=== PATIENT | female | born 1970 | race Two or more races ===

== ENCOUNTER 2017-04-11 06:38 | Day surgery (SDC) | payer OTHER ==
[2017-04-11] VITALS (10 sets, daily range): BP systolic 110–142; BP diastolic 67–83
[~2017-04-11] VITALS: Ht 152.4 cm; Wt 81.6 kg
[~2017-04-11 06:38] MED LIST: TRAMADOL HCL50 MG ORAL; ceFAZolin 1gm in D5W 55ml IVP ONE; celeBREX 200mg Cap **SURGERY PATIENTS ONLY ORAL ONE; oxyCONTIN 20mg tab ORAL ONE
--- NOTE | 2017-04-11 06:55 | Pre-Procedure Note/Attestation ---
Pre-Procedure Note/Attestation Complete Prior to Procedure Planned Procedure: right Procedure Narrative: Rt shoulder scope, sad, mini tay, debride vs repair of RTC, subpec biceps tenodesis vs tenotomy Indications for Procedure Pre-Operative Diagnosis: rt shoulder rtc tear, biceps tendonitis Attestation I attest that I discussed the nature of the procedure; its benefits; risks and complications; and alternatives (and the risks and benefits of such alternatives ), prior to the procedure, with the patient (or the patient's legal field representatives director). I attest that, if there was a reasonable possibility of needing a blood transfusion, the patient (or the patient's legal field representatives director) was given the [place] [facility] standardized written summary, pursuant to the [place] [address] Blood Safety Act ([place] Health and Safety Code # 1645, as amended). I attest that I re-evaluated the patient just prior to the surgery and that there has been no change in the patient's H&P, except as documented below:NONE ZOYA LAWSON Apr 11, 2017 06:55
[2017-04-11] MEDS ORDERED: Ropivacaine 5mg/ml Vial 30ml INJ ONE (07:22)
[2017-04-11] MEDS ORDERED: Lidocaine 1% 10mg/ml/Epi 0.005mg/ml 30ml vial INJ ONE (07:22)
[2017-04-11] MEDS ORDERED: Bupivacaine 0.5% Inj 30 ml vial INJ ONE (07:22)
[2017-04-11] MEDS ORDERED: NS Irrig 4000ml IRRIG ONE ×2 (08:00→09:01)
[2017-04-11] MEDS ORDERED: Atropine Sulfate 0.4mg/ml inj ONE (08:00)
[2017-04-11] MEDS ORDERED: Lidocaine 1% MPF 10mg/ml 5ml ONE (08:00)
[2017-04-11] MEDS ORDERED: Metoclopramide 10mg/2ml Inj ONE (08:00)
[2017-04-11] MEDS ORDERED: Propofol 200mg/20ml IV ONE (08:00)
[2017-04-11] MEDS ORDERED: Sodium Chloride 10ml vial INJ ONE (08:00)
[2017-04-11] MEDS ORDERED: Midazolam 2mg/2ml Inj ONE (08:00)
[2017-04-11] MEDS ORDERED: fentaNYL 100 mcg/2 mL IV ONE (08:00)
[2017-04-11] MEDS ORDERED: LR 1000ml ONE (08:00)
[2017-04-11] MEDS ORDERED: Dexamethasone 4mg/ml vial ONE (08:00)
[2017-04-11] MEDS ORDERED: Zemuron 50mg/5ml Inj IV ONE (08:00)
[2017-04-11] MEDS ORDERED: Esmolol 100mg/10ml Inj ONE (08:00)
[2017-04-11] MEDS ORDERED: Ketamine 500mg Inj ONE (08:00)
[2017-04-11] MEDS ORDERED: LR 1000ml 1,000 ML IVLG SCH (08:44)
--- NOTE | 2017-04-11 08:44 | Anethesia Preoperative Eval ---
Anesthesia Pre-op PMH/ROS General Date of Evaluation: Apr 11, 2017 Anesthesiologist: Momo ASA Score: ASA 2 Mallampati Score Class I : Soft palate, uvula, fauces, pillars visible Class II: Soft palate, uvula, fauces visible Class III: Soft palate, base of uvula visible Class IV: Only hard plate visible Mallampati Classification: Class III Surgeon: Callum Diagnosis: Right shoulder rotator cuff tear Surgical Procedure: Right shoulder arthroscopy, rotator cuff repair Anesthesia History: none Family History: no anesthesia problems Allergies: Coded Allergies: IBUPROFEN (Verified Allergy, Intermediate, bloating, 04/11/17) Medications: see eMAR Past Medical History Cardiovascular: Denies: HTN, CAD, [place], valve dz, arrhythmia, other Pulmonary: Denies: asthma, COPD, ASHISH, other Gastrointestinal/Genitourinary: Reports: GERD, Denies: CRI, ESRD, other Neurologic/Psychiatric: Denies: dementia, CVA, depression/anxiety, TIA, other Endocrine: Denies: DM, hypothyroidism, steroids, other HEENT: Denies: cataract (L), cataract (R), glaucoma, [place] (L), [place] (R), other Hematology/Immune: Denies: anemia, DVT, bleeding disorder, other Musculoskeletal/Integumentary: Reports: other - hrniated cervical disc, Denies: OA, RA, DJD, DDD, edema Other: obesity PSxH Narrative: Left shoulder arthroscopy Anesthesia Pre-op Phys. Exam Physician Exam Last Vital Signs Date Time Temp Pulse Resp B/P (MAP) Pulse Ox O2 Delivery O2 Flow Rate FiO2 04/11/17 07:18 98.3 77 17 124/73 99 Room Air Constitutional: NAD Cardiovascular: RRR Respiratory: CTA Airway Exam Mallampati Score: Class III MO: limited Neck: short, obese TMD: <3FB ROM: limited Teeth: intact Anesthesia Pre-op A/P Labs see chart Urine Test Test 04/11/17 07:00 Urine HCG, Qualitative Negative Studies Pre-op Studies: EKG - sr Risk Assessment & Plan Assessment: ASA II Plan: GA, right interscalene nerve block Status Change Before Surgery: No Pre-Antibiotics Drug: Ancef 2g Given Within 1 Hr of Incision: Yes Time Given: 08:30 FRANCISCA BARRIENTOS M.D. Apr 11, 2017 08:44
[2017-04-11] MEDS ORDERED: fentaNYL 100 mcg/2 mL IV PRN (08:45)
[2017-04-11] MEDS ORDERED: Metoclopramide 10mg/2ml Inj IVP PRN (08:45)
[2017-04-11] MEDS ORDERED: DiphenhydrAMINE 50mg/ml Inj IVP PRN (08:45)
[2017-04-11] MEDS ORDERED: Hydromorphone 0.5mg/0.5ml inj IVP PRN (08:45)
[2017-04-11] MEDS ORDERED: Midazolam 2mg/2ml Inj IVP PRN (08:45)
--- NOTE | 2017-04-11 09:03 | Immediate Post-Op Evaluation ---
Immediate Post-Op Evalulation Immediate Post-Op Evalulation Procedure: Right shoulder arthroscopy, rotator cuff repair Date of Evaluation: Apr 11, 2017 Time of Evaluation: 10:36 IV Fluids: 1.4L Blood Products: 0 Estimated Blood Loss: min Urinary Output: 0 Blood Pressure Systolic: 141 Blood Pressure Diastolic: 78 Pulse Rate: 88 Respiratory Rate: 16 O2 Sat by Pulse Oximetry: 95 Temperature (Fahrenheit): 97.2 Pain Score (1-10): 0 Nausea: No Vomiting: No Complications 0 Patient Status: awake, reacts, patent, none Hydration Status: adequate Drug: Ancef 2g Given Within 1 Hr of Incision: Yes Time Given: 08:30 FRANCISCA BARRIENTOS M.D. Apr 11, 2017 09:03
--- NOTE | 2017-04-11 09:04 | 48 Hour Post Anesthesia Eval ---
Post Anesthesia Evaluation Procedure: Right shoulder arthroscopy, rotator cuff repair Date of Evaluation: Apr 11, 2017 Airway: patent Nausea: No Vomiting: No Pain Intensity: 0 Hydration Status: adequate Cardiopulmonary Status: at baseline Mental Status/LOC: patient returned to baseline Post-Anesthesia Complications: 0 Follow-up care needed: ready to discharge FRANCISCA BARRIENTOS M.D. Apr 11, 2017 09:04
[2017-04-11] MEDS ORDERED: EPINEPHrine 1mg/1ml Amp ONE ×2 (09:31→09:49)
--- NOTE | 2017-04-11 10:21 | Brief Operative Note ---
Immediate Post Operative Note Operative Note Chief Complaint: rt shoulder pain Pre-op Diagnosis: rt shoulder biceps tendonitis Procedure: rt shoulder scope, sad, mini tay, biceps tenodesis Post-op Diagnosis: same as pre-op Findings: consistent w/pre-op dx studies Surgeon: md peter Bean Snapper: richard jacobs Anesthesiologist: md ramone Anesthesia: general, regional Specimen: none Complications: none Condition: stable Fluids: ns Estimated Blood Loss: minimal Drains: none Implant(s) used?: Yes ROMANA JACOBS Apr 11, 2017 10:21
[2017-04-11] MEDS ORDERED: Tylenol #3 tab (300mg/30mg) ORAL PRN (15:01)
[2017-04-11] MEDS ORDERED: Hydromorphone 0.5mg/0.5ml inj SUBQ PRN (15:01)
[2017-04-11] MEDS ORDERED: Norco 5mg/325mg tab ORAL PRN (15:01)
[2017-04-11] MEDS ORDERED: D5 1/2NS 1,000 ML IV SCH (15:01)
--- NOTE | 2017-04-11 17:45 | Operative Note - Dictated ---
DATE OF OPERATION: 04/11/2017 PREOPERATIVE DIAGNOSES: 1. Right shoulder impingement. 2. 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 3. Right shoulder biceps tendon tear. POSTOPERATIVE DIAGNOSES: 1. Right shoulder severe degeneration of the biceps tendon involving more than 50% of the biceps. 2. Right shoulder subacromial impingement. 3. Right shoulder acromioclavicular joint bone spur. PROCEDURES: 1. Right shoulder arthroscopy and extensive intra-articular shaving. 2. Right shoulder subacromial bursoscopy, bursectomy, and subacromial decompression. 3. Right shoulder mini-Marty procedure. 4. Right shoulder arthroscopic biceps tenotomy and tenodesis with an Arthrex 6.25 mm SwiveLock screw. SURGEON: Javon Nolen M.D. FOLLOW UP MANAGER: Lidia Reyna PA-C Hospitality Recruiter was present during the actual operative portion of the case and was important and essential part of the operation. During the operation, the assistant operations manager held and operated the arthroscopic camera for visualization, assisted by manipulating the arm to help with visualization, and helped with essential parts of the repair process as necessary such as operating surgical instruments under surgeon supervision, suture management, and wound closures. ANESTHESIOLOGIST: Lina Barr M.D. ANESTHESIA: LMA anesthesia combined with interscalene block. EBL: Less than 20 mL. COMPLICATIONS: None SURGICAL INDICATION: Patient is a 46-year-old female who sustained the above injury to her shoulder. The patient was treated non-operative initially, but this did not alleviate the patients symptoms. Therefore, after discussing all non-surgical and surgical options, and discussing all foreseeable risk and benefits of surgery, the patient opted for surgical treatment as described above. PATIENT POSITIONING: Patient was brought to the operating room table and was placed on the operating room table. All pressure points were well padded. General anesthesia was induced and patient was then placed in the lateral decubitus position. All pressure points were well padded again and an axillary roll was placed. Patient shoulder was then prepped and draped in the usual sterile fashion. Time out was performed and the appropriate preoperative antibiotic was given by the anesthesiologist. EXAMINATION OF SHOULDER UNDER ANESTHESIA: The shoulder was examined under anesthesia with all muscles well relaxed. The shoulder was forward flexed, abducted and was placed through full range of external and internal rotation. The anterior, posterior, and inferior stability of the shoulder was checked. The exam revealed. No evidence of adhesive capsulitis and no evidence of instability. PORTAL PLACEMENT: The posterior portal was established 2 cm inferior and 1 cm medial to the edge of the posterior acromion. 1 cm skin incision was made using an eleven blade and using the blunt obturator, the cannula was gently placed through the capsule. The midglenoid portal was established just lateral to the coracoid process under direct visualization. Direction of the cannula was first established using a spinal needle, and subsequently, the cannula was placed through the capsule with a blunt obturator. DIAGNOSTIC ARTHROSCOPY: The biceps tendon was probed and pulled through the joint for visualization. The biceps tendon had severe degeneration with severe fraying and involving more than 50% of the biceps tendon. The biceps anchor was palpated with a probe and was visualized. It appeared well attached and there was no evidence of SLAP tear. The posterior labrum and axillary recess was visualized. This was normal and there was no evidence of loose cartilage or fragments in this area. The glenoid articular surface was visualized and it appeared normal. The articular surface of the rotator cuff was visualized and probed next. There was no evidence of articular sided rotator cuff tear extending from the supraspinatus back to the posterior cuff. The Humeral head articular surface was then visualized. There was no evidence of articular cartilage damage. Next the anterior labrum, middle gleno-humeral ligament, subscapularis tendon, and the anterior inferior gleno-humeral ligament were evaluated. These structures were completely normal. At this point, the scope was moved to the midglenoid portal and the posterior structures including the posterior labrum, posterior capsule and posterior cuff were visualized. These structures were completely normal. The subscapularis recess was devoid of any loose bodies and the anterior capsule was well attached to the humeral neck. The middle and anterior inferior glenohumeral ligament was visualized. These structures were completely normal. OPERATIVE DEBRIDEMENTS AND REPAIR: Care was given to all partial thickness tears and frayed structures in the shoulder joint. The frayed rotator cuff and labrum was debrided using a shaver initially through the anterior portal and subsequently through the posterior portal to complete the debridement. This allowed for smooth debridement of all affected structures and all loose fragments were removed. At this point, care was given to the biceps tendon. The biceps tendon was debrided and it was noted that there was extensive degeneration. Therefore, at this point, using a spinal needle and suture passing technique, a single FiberWire suture was then passed through the biceps tendon. Once the tendon was secured with a suture, a tenotomy of the biceps tendon was performed. The tendon was then controlled with the suture and was taken into subacromial space for later tenodesis. DIAGNOSTIC BURSASCOPY AND SUBACROMIAL DECOMPRESSION: The subacromion bursa was entered from the posterior portal. The anterior portal was established under the CA ligament using a switching stick. Subacromial arthroscopy was initiated. There was extensive bursitis and thickened and inflamed bursa tissue present. The CA ligament appeared to be scuffed and frayed. The shaver was placed through the anterior cannula and debridement of the hypertrophic bursa tissue was accomplished. Once visualization was adequate, a lateral portal was established using a blunt trochar in the mid portion of the acromion bone in the anterior-posterior direction and approximately 2 cm lateral to the lateral edge of the acromion. Using combination of shaver and electrocautery the CA ligament was released from the undersurface of the acromion and a complete bursectomy was accomplished. At this point, a subacromial decompression was performed using a michelle initially taking off 5-8 mm of the anterolateral edge of the acromion from the lateral portal and viewing from the posterior portal. Then the lateral border of the undersurface of the acromion was decompressed to the same dept as the anterolateral edge. A posterior trough was then created in the acromion in line with the posterior edge of the clavicle. At this point, the scope was placed in the lateral portal and the subacromial decompression was performed from the posterior portal decompressing the undersurface of the acromion to dept of 5-8 mm. The decompression was performed anterior to the previously marked trough all the way medially to the level of the AC joint. At all times, care was given not to take off too much bone in order to avoid risk of fracture of the acromion. An excellent subacromial decompression was performed in this fashion. At this point, the bursal side of the rotator cuff was examined. All the bursa over the rotator cuff was removed and the rotator cuff was examined with a probe. The arm was placed into external rotation, neutral, and then internal rotation and there was no evidence of tear of the rotator cuff. The scope was then placed in the posterior portal and the subacromial decompression was rechecked to assure there is no area of bone spur that would be still impinging onto the rotator cuff. EVALUATION OF DISTAL CLAVICLE AND DISTAL CLAVICLE RESECTION: Care was given to the distal end of the clavicle. Using electrocautery and viet, the distal end of the bursa and soft tissue around the distal end of the clavicle was debrided and cleaned. Care was given not to inflict excessive trauma to the ligaments of the AC joint. The distal end of the clavicle appeared to have an inferior osteophyte extending down well bellow the level of the acromion at the level of the AC joint. This appeared to be impinging onto the supraspinatus muscle belly and the musculotendinous junction of the rotator cuff. A mini-Marty procedure was performed by using a michelle to resect the inferior 30% of the distal end of the clavicle. This decompression allowed space for the inferior structures to slide without impingement. This co-plained the inferior edge of the distal clavicle with the inferior edge of the acromion. At this point, care was given to the biceps tendon. The tenotomized biceps tendon and the suture ends were identified. At this point, the biceps tendon was then dissected down into the groove in the suprapatellar area. At this point, once this was identified, the intertubercular groove was then identified and was opened using a ArthroCare device. At this point, a 6.5 mm drill was then used to drill a intraosseous tunnel and an Arthrex 6.25 mm SwiveLock was then used to secure the biceps tendon into the tunnel. This provided excellent stability. Once this was completed, the excessive edge of the biceps tendon was then debrided to a stable zone. At this point, the biceps tenotomy and tenodesis performed and completed in this fashion. Excellent tension was obtained of the biceps tendon. CONDITION AT DISCHARGE FROM OPERATING ROOM: The skin was re-approximated and sterile dressing and sling were applied. All lap counts and instrument counts were correct. Patient tolerated the procedure well without complications and was taken to the recovery room in stable conditions. Javon Cain Nolen DR: ANGELA JOB#: [id number] CC:
== END 2017-04-11 13:50 | disposition home or self-care (01) ==
LOC: SUR 06:38
DX: M75.41 Impingement syndrome of right shoulder (principal); M19.012 Primary osteoarthritis, left shoulder; S46.211A Strain of muscle, fascia and tendon of other parts of biceps, right arm, initial encounter; X58.XXXA Exposure to other specified factors, initial encounter; Y93.9 Activity, unspecified; Y92.9 Unspecified place or not applicable; K21.9 Gastro-esophageal reflux disease without esophagitis; Z88.6 Allergy status to analgesic agent; E66.9 Obesity, unspecified; Z68.35 Body mass index [BMI] 35.0-35.9, adult
CPT/HCPCS: 29824; 29826; 81025; C1713; J0171; J0461; J0690; J1100; J1170; J2250; J2405; J2704; J2765; J2795; J3010; J3490; J7120; 94003; 94150